=== PATIENT | female | born 1980 | race Caucasian/White ===

== ENCOUNTER 2018-05-18 19:01 | Emergency (ER) | payer SELFPAY ==
[~2018-05-18] VITALS: Wt 90.7 kg
[~2018-05-18 19:01] MED LIST: CALC-600 PO; FERR27TA PO; PREN1TAB49 PO
[2018-05-18 19:04] VITALS: BP 157/59; PULSE 107; RESP 18
== END 2018-05-18 21:11 | disposition left against medical advice (07) ==
LOC: FTE 19:01
DX: Z53.21 Procedure and treatment not carried out due to patient leaving prior to being seen by health care provider (principal)